=== PATIENT | male | born 1965 | race Two or more races ===

== ENCOUNTER 2025-01-19 04:52 | Emergency (ER) | payer BC ==
[~2025-01-19] VITALS: Ht 162.6 cm; Wt 86.2 kg
[2025-01-19] MEDS ORDERED: TDAP [DIPH/PERTUSSIS/TET] 0.5 ML VIAL IM ONE (05:22)
[2025-01-19] MEDS ORDERED: LIDOCAINE 1%-EPI 1:100,000 20 ML VIAL ONE (05:22)
[2025-01-19] MEDS ORDERED: IOHEXOL-350 100 ML VIAL IV ONE (05:24)
[2025-01-19] MEDS ORDERED: IV NS 0.9% 250 ML IV ONE (05:24)
[2025-01-19] MEDS ORDERED: CT SWABBABLE VALVE TRANS SET 1 EA INFUS.SET MC ONE (05:24)
[2025-01-19] MEDS ORDERED: CEFAZOLIN 1 GM in IV D5W 50 ML IV ONE (05:30)
[2025-01-19] MEDS ORDERED: CEPHALEXIN MONOHYDRATE 500 MG CAPSULE PO ONE (05:31)
[2025-01-19 05:37] LABS: PLATELET COUNT (AUTO) 150 K/uL (150-450); RED BLOOD CELL COUNT(AUTO) 4.75 MIL/uL (4.5-6.0); RED CELL DISTRIBUTION WIDTH 13.7 % (11.5-15.0); WHITE BLOOD COUNT (AUTO) 8.3 K/uL (4.3-11.0)
[2025-01-19] MEDS: CEPHALEXIN MONOHYDRATE 500 MG CAPSULE PO ONE (05:52)
[2025-01-19] MEDS: TDAP [DIPH/PERTUSSIS/TET] 0.5 ML VIAL IM ONE (05:52)
[2025-01-19 05:54] LABS: CALCIUM, SERUM 8.5 mg/dL (8.5-10.1); CREATININE 1.0 mg/dL (0.6-1.3); SODIUM SERUM 134.0 mmol/L (136-145); UREA NITROGEN, BLOOD 12.0 mg/dL (7-18)
[2025-01-19] MEDS: LIDOCAINE 1%-EPI 1:100,000 50 ML VIAL IJ ONE (05:54)
[2025-01-19 05:58] LABS: ASPARTATE AMINOTRANSFERASE 18.0 U/L (15-37); TOTAL PROTEIN, SERUM 7.5 g/dL (6.4-8.2)
[2025-01-19] MEDS: IV NS 0.9% 500 ML BAG IV ONE (06:42)
[2025-01-19] MEDS ORDERED: CEFA500C PO (08:53)
[2025-01-19 09:31] VITALS: BP 129/81; TEMP 98.1; O2SAT 98
== END 2025-01-19 09:32 | disposition home or self-care (01) ==
LOC: ER 04:56
DX: S81.811A Laceration without foreign body, right lower leg, initial encounter (principal); E78.5 Hyperlipidemia, unspecified; I10 Essential (primary) hypertension; Z79.82 Long term (current) use of aspirin; Y33.XXXA Other specified events, undetermined intent, initial encounter; Y93.89 Activity, other specified; Y92.521 Bus station as the place of occurrence of the external cause; Y99.8 Other external cause status
CPT/HCPCS: 12002; 36415; 75635; 80053; 83735; 85025; 90471; 90715; 96360; 99285; A6403; J0690; J3490; J7040; J7050; J7060; Q9967